=== PATIENT | female | born 1990 | race Caucasian/White ===

== ENCOUNTER 2019-11-10 03:42 | Inpatient (IN) | payer BC ==
[2019-11-10] VITALS (32 sets, daily range): BP systolic 89–151; BP diastolic 48–75
[~2019-11-10] VITALS: Ht 160 cm; Wt 76.7 kg
--- NOTE | 2019-11-10 03:50 | NUR ---
LYNDSEY HURTADO presented to unit via ambulatory from ED, accompanied by so, with c/o CONTRACTIONS. LYNDSEY HURTADO weighed, gowned, voided, and to bed. EFHM and TOCO applied, VS taken. LYNDSEY HURTADO oriented to bed controls, call light, TV, heat, and A/C controls.
[2019-11-10] MEDS ORDERED: PREN-53 PO (03:54)
--- NOTE | 2019-11-10 04:27 | NUR ---
Pt states that UC occurring at home are hard to short clusters and go away when she is resting. Pt educated on need to evaluate FHR with a NST. Pt resting on side at this time. Pt states when she has UC pain is in the back.
[2019-11-10] MEDS ORDERED: LIDOCAINE 1% INJ 20 ML 20 ML VIAL ONE (04:58)
[2019-11-10] MEDS ORDERED: MINERAL OIL CONCENTRATE 99.9% 15 ML UDC ONE (04:58)
[2019-11-10] MEDS ORDERED: D5 LR IV SOLUTION 1,000 ML IV ONE (04:59)
--- NOTE | 2019-11-10 05:00 | NUR ---
SVE performed change of cervix to [address] Liu called and pt made inpt. Dr Liu to call with GBS status.
--- NOTE | 2019-11-10 05:08 | NUR ---
Order for pt to use birthing ball and have some mobility with labor.
--- NOTE | 2019-11-10 05:08 | NUR ---
Dr Liu called with GBS status, neg. Pt does not want epidural at this time.
--- OUTSIDE RECORDS SUMMARY | 2019-11-10 05:24 | XMS REPORT | Continuity of Care Document ---
Author Organization Unknown Address Unknown Phone Unavailable Allergies There is no data. Medications There is no data. Problems There is no data. Procedures There is no data. Results Test Result Range SYPHILIS (RPR W/ REFLEX CONFIRMATION) - 04/06/19 10:02 RPR (DX) W/REFL TITER AND CONFIRMATORY TESTING NON-REACTIVE NON-REACTIVE HEP B SURFACE ANTIGEN - 04/06/19 10:02 HEPATITIS B SURFACE ANTIGEN NON-REACTIVE NON-REACTIVE RUBELLA IMMUNE STATUS - 04/06/19 10:02 RUBELLA ANTIBODY (IGG) 1.31 index NRG GC/CHLAMYDIA (SWAB OR URINE)-RAPID - 10:30 CHLAMYDIA TRACHOMATIS RNA, TMA NOT DETECTED NOT DETECTED NEISSERIA GONORRHOEAE RNA, TMA NOT DETECTED NOT DETECTED COMMENT NRG SUREPATH PAP RFX HPV mRNA E6/E7 - 10:30 CLINICAL INFORMATION: NRG LMP: NRG PREV. PAP: NRG PREV. BX: NRG SOURCE: Endocervix NRG STATEMENT OF ADEQUACY: NRG INTERPRETATION/RESULT: NRG LACE SEWER: NRG REVIEW LACE SEWER: NRG INFECTION: NRG COMMENT NRG GLUCOSE [place] 1 HOUR - 08/13/19 09:55 GLUCOSE, POSTPRANDIAL/ 1 HOUR 148 mg/dL See Note: CBC - 08/13/19 09:55 WHITE BLOOD CELL COUNT 9.5 Thousand/uL 3 .8-10.8 RED BLOOD CELL COUNT 3.61 Million/uL 3.8 0-5.10 HEMOGLOBIN 10.7 g/dL 11.7-15.5 HEMATOCRIT 31.5 % 35.0-45.0 MCV 87.3 fL 80.0-100.0 MCH 29.6 pg 27.0-33.0 MCHC 34.0 g/dL 32.0-36.0 RDW 12.4 % 11.0-15.0 PLATELET COUNT 236 Thousand/uL 140-400 MPV 11.5 fL 7.5-12.5 ABSOLUTE NEUTROPHILS 7429 cells/uL 1500- 7800 ABSOLUTE LYMPHOCYTES 1368 cells/uL 850-3 900 ABSOLUTE MONOCYTES 542 cells/uL 200-950 ABSOLUTE EOSINOPHILS 133 cells/uL 15-500 ABSOLUTE BASOPHILS 29 cells/uL 0-200 NEUTROPHILS 78.2 % NRG LYMPHOCYTES 14.4 % NRG MONOCYTES 5.7 % NRG EOSINOPHILS 1.4 % NRG BASOPHILS 0.3 % NRG SYPHILIS (RPR W/ REFLEX CONFIRMATION) - 08/13/19 09:55 RPR (DX) W/REFL TITER AND CONFIRMATORY TESTING NON-REACTIVE NON-REACTIVE CULTURE, GROUP B STREP (VAGINAL) - 10/12 10:30 STREPTOCOCCUS, GROUP B CULTURE SEE NOTE NRG Encounters ACCT No. Visit Date/Time Discharge Status Pt. Type Provider Facility Loc./Unit Complaint [id number] 10/20/2019 14:00:00 10/20/2019 23:59: 59 CLS Outpatient EARLENE WILLSON SALONI [facility] [id number] 10/13/2019 10:15:00 Document Registration [id number] 08/13/2019 08:30:00 Document Registration [id number] 04/06/2019 08:45:00 Document Registration
[2019-11-10 05:39] LABS: BASOPHILS % (AUTO) 0 % (0-10); EOSINOPHILS # (AUTO) 0.1 10^3/uL (0.0-0.3); EOSINOPHILS % (AUTO) 1 % (0-10); HEMATOCRIT 30 % (35-52); HEMOGLOBIN 9.6 G/DL (11.5-16.0); LYMPHOCYTES # (AUTO) 2.1 X 10^3 (1.0-4.0); LYMPHOCYTES % (AUTO) 21 % (12-44); MEAN CORPUSCULAR HEMOGLOBIN 25 PG (25-34); MEAN CORPUSCULAR HGB CONC 32 G/DL (32-36); MEAN CORPUSCULAR VOLUME 79 FL (80-99); MEAN PLATELET VOLUME 13.1 FL (7.4-10.4); MONOCYTES # (AUTO) 0.8 X 10^3 (0.0-1.0); MONOCYTES % (AUTO) 9 % (0-12); NEUTROPHILS # (AUTO) 6.7 X 10^3 (1.8-7.8); NEUTROPHILS % (AUTO) 69 % (42-75); PLATELET COUNT 157 10^3/uL (130-400); RED CELL DISTRIBUTION WIDTH 14.5 % (10.0-14.5); WHITE BLOOD COUNT 9.7 10^3/uL (4.3-11.0)
[2019-11-10] MEDS ORDERED: MINERAL OIL CONCENTRATE 99.9% 15 ML UDC TOP PRN (05:45)
[2019-11-10] MEDS ORDERED: LIDOCAINE 1% INJ 20 ML 20 ML VIAL INJ PRN (05:45)
[2019-11-10] MEDS: CATHETER FLUSH 10 ML SYR IV SCH ×2 (06:30→15:48)
[2019-11-10] MEDS: D5 LR IV SOLUTION 1,000 ML IV SCH ×2 (06:44→15:48)
--- NOTE | 2019-11-10 07:13 | History & Physical-OB/GYN ---
History of Present Illness History of Present Illness Reason for visit/HPI Ms. Aguilar 28 year female, A0, at 39 6/7 weeks presents to Labor & Delivery with the onset of labor Date of Admission Nov 10, 2019 at 05:00 Date Seen by a Provider: Nov 10, 2019 Time Seen by a Provider: 06:45 I consulted on this patient on 11/10/19 07:07 Attending Physician Abraham Lui DO Admitting Physician Abraham Liu DO Consult Allergies and Home Medications Allergies Coded Allergies: Cephalosporins (Verified Allergy, Unknown, 11/10/19) Penicillins (Verified Allergy, Unknown, 11/10/19) Home Medications Lee888/Iron Fumarate/FA/Dss 1 Each Tablet, 1 EACH PO DAILY, (Reported) Patient Home Medication List Home Medication List Reviewed: Yes Past Otrsunm-Fhwabv-Rrhwqd Hx Patient Social History Marrital Status: single Number of Children: 2 Number of living children: 2 Employed/Student: employed Alcohol Use: Denies Use Recreational Drug Use: No Smoking Status: Never a Smoker 2nd Hand Smoke Exposure: No Physical Abuse Screen: No Sexual Abuse: No Recent Foreign Travel: No Contact w/other who traveled: No Recent Hopitalizations: No Recent Infectious Disease Expo: No Immunizations Up To Date Date of Influenza Vaccine: May 11, 2019 Seasonal Allergies Seasonal Allergies: No Surgeries No Respiratory No Cardiovascular No Neurological No Reproductive System Expected Date of Delivery: Nov 11, 2019 Hx : 3 Hx Para: 2 Genitourinary No Gastrointestinal No Musculoskeletal No Endocrine History of Endocrine Disorders: No HEENT History of HEENT Disorders: No Cancer No Psychosocial History of Psychiatric Problem: No Integumentary History of Skin or Integumenta: No Blood Transfusions History of Blood Disorders: No Family Medical History Family Hx: Patient reports no known family medical history. Review of Systems Constitutional: see HPI Physical Exam Physical Exam Vital Signs Vital Signs Date Time Temp Pulse Resp B/P (MAP) Pulse Ox O2 Delivery O2 Flow Rate FiO2 11/10/19 04:20 36.5 84 18 98 Room Air 11/10/19 04:20 36.5 84 18 98 Room Air 11/10/19 04:05 36.5 84 18 129/67 (87) 98 Capillary Refill : Less Than 3 Seconds Labs Laboratory Tests 11/10/19 05:15: White Blood Count 9.7, Red Blood Count 3.82L, Hemoglobin 9.6L, Hematocrit 30L, Mean Corpuscular Volume 79L, Mean Corpuscular Hemoglobin 25, Mean Corpuscular Hemoglobin Concent 32, Red Cell Distribution Width 14.5, Platelet Count 157, Mean Platelet Volume 13.1H, Neutrophils (%) (Auto) 69, Lymphocytes (%) (Auto) 21, Monocytes (%) (Auto) 9, Eosinophils (%) (Auto) 1, Basophils (%) (Auto) 0, Neutrophils # (Auto) 6.7, Lymphocytes # (Auto) 2.1, Monocytes # (Auto) 0.8, Eosinophils # (Auto) 0.1, Basophils # (Auto) 0.0 General Appearance: No Apparent Distress, WD/WN Respiratory: Chest Non Tender, Lungs Clear, Normal Breath Sounds Cardiovascular: Regular Rate, Rhythm, No JVD, No Murmur Abdominal: normal bowel sounds, non tender Gynecology/General: No urethral discharge, No lesions Labia: WNL Vagina: WNL Cervix: WNL Cervix OS: open (4 cm/70%/0 Vertex/Intact) Uterus: Enlarged (Gravid) Extremity: Normal Inspection, Non Tender, No Calf Tenderness Assessment/Plan Assessment and Plan Intrauterine at 39 6/7 weeks Plan: AROM. Pitocin Augmentation if necessary. Pain management per patient request. I expect a normal spontaneous vaginal delivery Admission Diagnosis Admission Status: Inpatient Order (span 2 midnights) Reason for Inpatient Admission: Intrauterine at 39 6/7 weeks (active labor) Clinical Quality Measures DVT/VTE Risk/Contraindication: Risk Factor Score Per Nursin RFS Level Per Nursing on Admit: 1=Low/No VTE ABRAHAM BIRD DO Nov 10, 2019 07:13
[2019-11-10] MEDS ORDERED: fentaNYL 2 mcg/ml BUPIVA 0.125 100 ML ONE (07:31)
[2019-11-10] MEDS ORDERED: LACTATED RINGERS 1,000 ML IV SCH (08:06)
[2019-11-10] MEDS ORDERED: OXYTOCIN PRE-MIX DRIP 500 ML IV SCH ×2 (08:14→09:49)
[2019-11-10] MEDS ORDERED: OXYTOCIN PRE-MIX DRIP 500 ML IV ONE (08:15)
[2019-11-10] MEDS ORDERED: diphenhydrAMINE 50 MG/ML INJ (BENADRYL) IV PRN (08:15)
[2019-11-10] MEDS ORDERED: ONDANSETRON 4 MG/2 ML (SDV) Z0FRAN IV PRN (08:15)
[2019-11-10] MEDS ORDERED: NALOXONE 0.4 MG/ML 1 ML (NARCAN) VIAL IV PRN ×2 (08:15)
[2019-11-10] MEDS ORDERED: EPIDURAL (fentaNYL 2 MCG/ML BUPIVA 0.125%)100 ML BAG EPI SCH (08:15)
[2019-11-10] MEDS ORDERED: METOCLOPRAMIDE INJ 10 MG/2 ML (REGLAN) IV PRN (08:15)
--- NOTE | 2019-11-10 09:34 | NUR ---
local placed to perineum for repair of periurethral tear per dr portillo. repair started.
--- NOTE | 2019-11-10 09:39 | NUR ---
spontaneous vaginal delivery of placenta with cord attached. fundal massage per this rn and dr portillo. pitocin increased to 999ml/hr as ordered. ffu/0 with lt rubra noted, no clots expressed. vss. plan of care reviewed with pt and s.o. regarding recovery period and transfer to pp room. fresh ice water to bedside. 0954 ffu/0 with lt -mod rubra noted, no clots expressed. vss. pt denies pain. 1008 ffu/0 with lt-mod rubra noted, no clots expressed. vss. pt denies needs 1038 ffu/0 with lt rubra noted, no clots expressed. vss. 1100 vss plan of care reviewed with pt and s.o.
--- NOTE | 2019-11-10 09:59 | OB Labor & Delivery Record ---
Vag Delivery Note Vag Delivery Note Date of Delivery: 11/10/19 Preoperative Diagnosis: Amelia Aguilar is a (28 /Para 3 / 2,Gestational Age (wks)39 6/7 weeks with [the onset of labor] Postoperative Diagnosis: Same Surgeon: LISA WINCHESTER Dovetail Machine Operator: [None] Anesthesia: [Epidural] Delivery Type: [Normal Spontaneous Vaginal Delivery] Findings: [Male , cephalic presentation] Viable [male] infant, apgars [8, 9], weight [8 lb 10 oz] Lacerations: Right labial minora--repaired with 4-0 Vicryl Intact placenta with 3 vessel cord. No nuchal cord, body cord or shoulder dystocia Estimated Blood Loss: [300] ml Complications: None Condition: Stable Description of Procedure: The patient is a 28 year old female who presented [in labor at 39 6/7 weeks]. She was admitted and informed consent was obtained. Her labor course was unremarkable. She progressed to complete dilatation and began to push. She was then set up for delivery. The infant's head was delivered atraumatically in the [JOSE] position. The shoulders and remainder of the infant's body were then delivered without difficulty. Upon delivery, the head was held below the level of the perineum and the mouth and nares were bulb suctioned. The cord was doubly clamped and cut and the infant was handed off to the pediatric staff where NRP protocol was followed. An intact placenta with 3-vessel cord delivered via Mejia and there was found to be minimal bleeding.~ Vigorous fundal massage was performed and the fundus was found to be firm. IV oxytocin was given. Examination of the vagina and perineum revealed a [right labial minora (close to clitoral crura] laceration repaired in the usual fashion with 4-0 vicryl suture. Following the repair, sponge, instrument and needle counts were correct. Mom and baby were both in stable condition in the labor suite. Vitals - Labs Vital Signs - I&O Vital Signs Date Time Temp Pulse Resp B/P (MAP) Pulse Ox O2 Delivery O2 Flow Rate FiO2 11/10/19 04:20 36.5 84 18 98 Room Air 11/10/19 04:20 36.5 84 18 98 Room Air 11/10/19 04:05 36.5 84 18 129/67 (87) 98 Labs Laboratory Tests 11/10/19 05:15: White Blood Count 9.7, Red Blood Count 3.82L, Hemoglobin 9.6L, Hematocrit 30L, Mean Corpuscular Volume 79L, Mean Corpuscular Hemoglobin 25, Mean Corpuscular Hemoglobin Concent 32, Red Cell Distribution Width 14.5, Platelet Count 157, Mean Platelet Volume 13.1H, Neutrophils (%) (Auto) 69, Lymphocytes (%) (Auto) 21, Monocytes (%) (Auto) 9, Eosinophils (%) (Auto) 1, Basophils (%) (Auto) 0, Neutrophils # (Auto) 6.7, Lymphocytes # (Auto) 2.1, Monocytes # (Auto) 0.8, Eosinophils # (Auto) 0.1, Basophils # (Auto) 0.0 LISA WINCHESTER DO Nov 10, 2019 09:58
[2019-11-10] MEDS ORDERED: TETANUS,DIPTH,PERTUSS P/F (BOOSTRIX) 0.5 ML VIAL IM ONE (10:00)
[2019-11-10] MEDS ORDERED: MEASLES,MUMPS,RUBELLA 1 EA INJ SQ ONE (10:00)
[2019-11-10] MEDS ORDERED: WITCH HAZEL(TUCKS) 40 EA JAR TOP PRN (10:00)
[2019-11-10] MEDS ORDERED: DIBUCAINE (NUPERCAINAL) 1% OINT 30 GM TOP PRN (10:00)
[2019-11-10] MEDS ORDERED: BENZOCAINE/MENTHOL (DERMOPLAST) 60 ML CAN TP PRN (10:00)
--- NOTE | 2019-11-10 11:30 | NUR ---
pericare, pad changed, underwear on. gown changed. pt transferred to wheelchair and then to room 309. To bed and oriented to room, call light and surroundings. Addendum: 11/10/19 at 1312 by JAGDISH MCCOY RN sandwich tray to bedside. fresh ice water
[2019-11-10] MEDS: ACETAMINOPHEN 500 MG TAB (TYLENOL) PO SCH ×2 (11:35→18:36)
[2019-11-10] MEDS: IBUPROFEN 800 MG (MOTRIN) TAB PO SCH ×2 (13:36→21:18)
[2019-11-10] MEDS ORDERED: CATHETER FLUSH 10 ML SYR IV SCH (14:00)
--- NOTE | 2019-11-10 14:10 | NUR ---
Assisted up to void. ambulates well. Void, pericare and pad changed. top linens changed on bed due to soiled. pt denies needs. ambulating around room.
[2019-11-10] MEDS: DOCUSATE SODIUM 100 MG (COLACE) CAP PO SCH (21:18)
[2019-11-11 01:51] VITALS: BP 108/58
[2019-11-11] MEDS: ACETAMINOPHEN 500 MG TAB (TYLENOL) PO SCH ×2 (01:51→09:06)
[2019-11-11 06:01] LABS: BASOPHILS % (AUTO) 0 % (0-10); EOSINOPHILS # (AUTO) 0.1 10^3/uL (0.0-0.3); EOSINOPHILS % (AUTO) 1 % (0-10); HEMATOCRIT 28 % (35-52); HEMOGLOBIN 8.7 G/DL (11.5-16.0); LYMPHOCYTES # (AUTO) 1.8 X 10^3 (1.0-4.0); LYMPHOCYTES % (AUTO) 19 % (12-44); MEAN CORPUSCULAR HEMOGLOBIN 25 PG (25-34); MEAN CORPUSCULAR HGB CONC 32 G/DL (32-36); MEAN CORPUSCULAR VOLUME 79 FL (80-99); MEAN PLATELET VOLUME 12.2 FL (7.4-10.4); MONOCYTES # (AUTO) 0.6 X 10^3 (0.0-1.0); MONOCYTES % (AUTO) 7 % (0-12); NEUTROPHILS # (AUTO) 7.2 X 10^3 (1.8-7.8); NEUTROPHILS % (AUTO) 74 % (42-75); PLATELET COUNT 135 10^3/uL (130-400); RED CELL DISTRIBUTION WIDTH 14.5 % (10.0-14.5); WHITE BLOOD COUNT 9.8 10^3/uL (4.3-11.0)
[2019-11-11 06:25] VITALS: BP 96/58
[2019-11-11] MEDS: IBUPROFEN 800 MG (MOTRIN) TAB PO SCH (06:31)
[2019-11-11] MEDS ORDERED: PRENATAL VITAMIN 1 EA TAB PO SCH (07:00)
--- NOTE | 2019-11-11 07:29 | Anesthesia-Regional Post-Op ---
Regional Patient Condition Mental Status: Alert, Oriented x3 Circulation: Same as Pre-Op Headache: Absent Sensation: Full Recovery Motor Block: Absent Post Op Complications Complications None Follow Up Care/Instructions Patient Instructions None needed. Anesthesia/Patient Condition Patient is doing well, no complaints, stable vital signs, no apparent adverse anesthesia problems. No complications reported per nursing. TIANA URIBE CRNA Nov 11, 2019 07:29
[2019-11-11] MEDS: DOCUSATE SODIUM 100 MG (COLACE) CAP PO SCH (09:06)
[2019-11-11 09:10] VITALS: BP 113/66
--- NOTE | 2019-11-11 09:10 | NUR ---
initial shift assessment completed, see interventions for further.
--- NOTE | 2019-11-11 09:25 | NUR ---
here. dismissal orders received
[2019-11-11] MEDS ORDERED: ACET-93 PO (09:36)
[2019-11-11] MEDS ORDERED: OXC5T PO (09:36)
[2019-11-11] MEDS ORDERED: DCS100C PO (09:36)
[2019-11-11] MEDS ORDERED: IBUP-1780 PO (09:36)
--- NOTE | 2019-11-11 09:40 | Discharge Summary ---
Diagnosis/Chief Complaint Date of Admission Nov 10, 2019 at 05:00 Date of Discharge November 11, 2019 Discharge Date: Nov 11, 2019 Discharge Time: 10:00 Admission Diagnosis Admission Diagnosis Intrauterine at 39 6/7 weeks Discharge Diagnosis Intrauterine at 39 6/7 weeks--delivered Reason Hospital Visit Ms. Aguilar 28 year female, A0, at 39 6/7 weeks presents to Labor & Delivery with the onset of labor Discharge Summary Hospital Course Was the Problem List Reviewed?: Yes Hospital Course Ms. Aguilar presented to Labor & Delivery with the onset of labor. I artificially ruptured her membranes. She received an Epidural for antepartum pain management. She progressed to complete, then delivered a healthy viable male without complications. The remainder of her hospitalization was unremarkable. Her vital signs remained stable throughout her hospitalization. I will discharge her to home with instructions, prescriptions, and a follow up appointment. Labs Laboratory Tests 11/10/19 05:15: Red Blood Count 3.82L, Hemoglobin 9.6L, Hematocrit 30L, Mean Corpuscular Volume 79L, Mean Platelet Volume 13.1H 11/11/19 05:50: Red Blood Count 3.48L, Hemoglobin 8.7L, Hematocrit 28L, Mean Corpuscular Volume 79L, Mean Platelet Volume 12.2H Procedures None. Discharge Physical Examination Allergies: Coded Allergies: Cephalosporins (Verified Allergy, Unknown, 11/10/19) Penicillins (Verified Allergy, Unknown, 11/10/19) Vitals & I&Os Vital Signs Date Time Temp Pulse Resp B/P (MAP) Pulse Ox O2 Delivery O2 Flow Rate FiO2 11/11/19 06:25 36.6 80 16 96/58 (71) 98 Room Air General Appearance: Alert, Oriented X3, Cooperative HEENT: Atraumatic, EOMI Respiratory: Clear to Auscultation, Normal Air Movement Cardiovascular: Regular Rate, No Murmurs Abdominal: Normal Bowel Sounds, Soft, No Tenderness Extremities: No Clubbing, No Cyanosis Skin: No Rashes Neuro: Normal Gait, Normal Speech Psych/Mental Status: Mental Status NL Discharge Home Medications Reviewed and agree with Discharge Medication list on patient's Discharge Instru ction sheet Instructions to Patient/Family Please see electronic discharge instructions given to patient. Clinical Quality Measures DVT/VTE Risk/Contraindication: Risk Factor Score Per Nursin RFS Level Per Nursing on Admit: 1=Low/No VTE PPX LISA WINCHESTER DO Nov 11, 2019 09:40
--- NOTE | 2019-11-11 10:28 | NUR ---
dismissal instructions given, verbalizes understanding. reviewed follow up appointment and Rx's. signature page signed, placed on chart.
--- NOTE | 2019-11-11 11:20 | NUR ---
pt ambulated to private vehicle with BETH Pittman and @ side. secured in rear facing car seat. pt stable with no sx's of distress noted.
== END 2019-11-11 11:20 | disposition home or self-care (01) | DRG 807 ==
LOC: WSo 03:42 → LDRP 03:46 → WSo 05:00 → LDRP 11:51
PROVIDERS: ADMIT Obstetrics & Gynecology; ATTEND Obstetrics & Gynecology
PROC: 10E0XZZ Delivery of Products of Conception, External Approach (ICD-10-PCS; principal; 2019-11-10)
PROC: 0HQ9XZZ Repair Perineum Skin, External Approach (ICD-10-PCS; 2019-11-10)
DX: O70.0 First degree perineal laceration during delivery (principal); Z37.0 Single live birth; Z3A.39 39 weeks gestation of pregnancy
CPT/HCPCS: 36415; 85025; 86850; 86900; 86901; 99212